=== PATIENT | female | born 1955 | race Caucasian/White ===

== ENCOUNTER 2022-09-22 12:59 | Inpatient (IN) | payer OTHER ==
[~2022-09-22] VITALS: Ht 167.6 cm; Wt 97.3 kg
[2022-09-22] MEDS ORDERED: SOD CHL 0.45% WITH 20MEQ KCL 1,000 ML IV ONE (13:30)
[2022-09-22 14:01] LABS: Basophils # (auto) 0 10 ^3/uL (0-0.2); Basophils % (auto) 0.4 % (0.0-2.0); Eosinophils # (auto) 0.3 10 ^3/uL (0-0.8); Lymphocytes # (auto) 1.7 10 ^3/uL (0.4-5.4); Nucleated Red Blood Cells % 0.1 %
[2022-09-22 14:03] LABS: Eosinophils % (auto) 3.7 % (0.0-7.0); Hematocrit 33.8 % (36.0-46.0); Hemoglobin 11.2 g/dL (12.2-16.2); Mean Corpuscular Hemoglobin 25.9 pg (28.0-32.0); Mean Corpuscular Volume 78.4 fL (80.0-100.0); Monocytes # (auto) 0.7 10 ^3/uL (0-1.3); Monocytes % (auto) 8.6 % (0.0-12.0); Neutrophils # (auto) 5.1 10 ^3/uL (1.6-8.6); Neutrophils % (auto) 65.3 % (37.0-80.0); Red Blood Cells 4.31 10^6/uL (4.0-5.20); Red Cell Distribution Width 18.8 % (11.8-14.3); White Blood Cell 7.8 10^3/uL (4.4-10.8)
[2022-09-22 14:28] LABS: Albumin 3.3 g/dL (3.4-5.0); Calcium 8.4 mg/dL (8.5-10.1)
[2022-09-22 14:33] LABS: Bilirubin, Total 0.4 mg/dL (0.2-1.0); Total Protein 6.2 g/dL (6.4-8.2)
[2022-09-22 15:09] LABS: Urine Bacteria FEW /hpf (None Seen); Urine Blood Negative /uL (Negative); Urine Specific Gravity 1.009 (1.001-1.035); Urine WBC 362 /hpf (0 - 5); Urine WBC Clumps PRESENT /hpf (None Seen)
[2022-09-22] MEDS ORDERED: DEXTROSE (50%) 50ML SYRG IV PRN (21:45)
[2022-09-22] MEDS ORDERED: ONDANSETRON HCL 4 MG/2 ML VIAL IV PRN (21:45)
[2022-09-22] MEDS ORDERED: HYDROcodone-ACET 5/325MG TAB PO PRN (21:45)
[2022-09-22] MEDS ORDERED: DOCUSATE SOD 100 MG CAP PO PRN (21:45)
[2022-09-22] MEDS ORDERED: NITROGLYCERIN 0.4 MG SL TAB SL PRN (22:45)
[2022-09-22] MEDS ORDERED: MORPHINE SULFATE INJ 2 MG/ml SYRG IV PRN (22:45)
[2022-09-23] MEDS: InsuLIN REG 1unit/0.01ml Soln (100units/ml) SC SCH ×5 (00:06→21:45)
[2022-09-23] MEDS: ACCU-CHEK COMFORT CURVE STRIP VI SCH ×5 (00:06→21:45)
[2022-09-23] MEDS: SODIUM CHLORIDE 0.9% 1,000 ML IV SCH ×2 (00:07→14:25)
[2022-09-23 06:05] LABS: Basophils # (auto) 0 10 ^3/uL (0-0.2); Eosinophils # (auto) 0.3 10 ^3/uL (0-0.8); Lymphocytes # (auto) 1.9 10 ^3/uL (0.4-5.4); Monocytes # (auto) 0.6 10 ^3/uL (0-1.3); Red Blood Cells 4.34 10^6/uL (4.0-5.20)
[2022-09-23 06:07] LABS: Basophils % (auto) 0.3 % (0.0-2.0); Hematocrit 33.8 % (36.0-46.0); Hemoglobin 11.1 g/dL (12.2-16.2); Lymphocytes % (auto) 24.9 % (10.0-50.0); Mean Corpuscular Hemoglobin 25.6 pg (28.0-32.0); Mean Corpuscular Hgb Conc. 32.9 g/dL (32.0-36.0); Mean Corpuscular Volume 77.8 fL (80.0-100.0); Monocytes % (auto) 8.6 % (0.0-12.0); Neutrophils # (auto) 4.6 10 ^3/uL (1.6-8.6); Neutrophils % (auto) 62.2 % (37.0-80.0); Nucleated Red Blood Cells % 0.1 %; Red Cell Distribution Width 18.9 % (11.8-14.3); White Blood Cell 7.5 10^3/uL (4.4-10.8)
[2022-09-23 06:09] LABS: Albumin 3.3 g/dL (3.4-5.0); Calcium 8.4 mg/dL (8.5-10.1); Potassium 3.6 mmol/L (3.5-5.1)
[2022-09-23 06:12] LABS: Bilirubin, Total 0.3 mg/dL (0.2-1.0); Total Protein 6.2 g/dL (6.4-8.2)
[2022-09-23] MEDS: ACETAMINOPHEN 325 MG TAB PO PRN ×2 (06:49→21:44)
[2022-09-23] MEDS ORDERED: FAMOTIDINE (10MG/ML) 2ML VL IV SCH (10:00)
[2022-09-23] MEDS: ASPirin 81 mg TAB PO SCH (10:09)
[2022-09-23] MEDS ORDERED: cefTRIAXone 1GM/50ML D5W 50 ML IV ONE (11:30)
[2022-09-23] MEDS ORDERED: PANTOPRAZOLE 40 MG TAB PO ONE (13:45)
[2022-09-23 15:00] VITALS: BP 121/73
[2022-09-23 15:01] VITALS: BP 128/65
[2022-09-23] MEDS ORDERED: LEVO125T PO (15:36)
[2022-09-23] MEDS ORDERED: TIZA4TAB7 PO (15:36)
[2022-09-23] MEDS ORDERED: ONDA-144 PO (15:36)
[2022-09-23] MEDS ORDERED: METO10TA3 PO (15:36)
[2022-09-23] MEDS ORDERED: OXYB5TAB61 PO (15:36)
[2022-09-23] MEDS ORDERED: ERY05OO LEFTEYE (15:36)
[2022-09-23] MEDS ORDERED: SIMV-13 PO (15:36)
[2022-09-23] MEDS ORDERED: LACT10SO3 PO (15:36)
[2022-09-23] MEDS ORDERED: PANT40T PO (15:36)
[2022-09-23] MEDS ORDERED: AMIT150T3 PO (15:36)
[2022-09-23] MEDS ORDERED: LATA0.0019 EACHEYE (15:36)
[2022-09-23] MEDS ORDERED: FURO40TA4 PO (15:36)
[2022-09-23] MEDS ORDERED: LOSA-69 PO (15:36)
[2022-09-23 17:00] VITALS: BP 146/84
[2022-09-23] MEDS: SUCRALFATE 1 GM TAB PO SCH ×2 (18:49→21:36)
[2022-09-23] MEDS: DOCUSATE SOD 100 MG CAP PO SCH (21:36)
[2022-09-23 22:00] VITALS: BP 112/79
[2022-09-24] VITALS (7 sets, daily range): BP systolic 134–147; BP diastolic 57–87
[2022-09-24] MEDS: ACETAMINOPHEN 325 MG TAB PO PRN (05:25)
[2022-09-24] MEDS: SUCRALFATE 1 GM TAB PO SCH ×2 (05:58→12:24)
[2022-09-24] MEDS: ACCU-CHEK COMFORT CURVE STRIP VI SCH ×2 (06:01→12:24)
[2022-09-24] MEDS: InsuLIN REG 1unit/0.01ml Soln (100units/ml) SC SCH ×2 (06:08→12:24)
[2022-09-24] MEDS: SODIUM CHLORIDE 0.9% 1,000 ML IV SCH (07:05)
[2022-09-24] MEDS ORDERED: cefTRIAXone 1GM/50ML D5W 50 ML IV SCH (09:00)
[2022-09-24] MEDS: ASPirin 81 mg TAB PO SCH (09:05)
[2022-09-24] MEDS: DOCUSATE SOD 100 MG CAP PO SCH (09:05)
[2022-09-24] MEDS ORDERED: PANTOPRAZOLE 40 MG TAB PO SCH (10:00)
[2022-09-24] MEDS ORDERED: LACTULOSE 20Gm/30ML SOLN PO PRN (10:00)
[2022-09-24] MEDS ORDERED: LOSARTAN POTASSIUM 25 MG TAB PO ONE (11:15)
[2022-09-25] MEDS ORDERED: LOSARTAN POTASSIUM 25 MG TAB PO SCH (10:00)
== END 2022-09-24 15:39 | disposition home or self-care (01) | DRG 312 ==
LOC: EDBD 12:59 → EDUNIT# 12:59 → ER 13:06 → TELE 22:32 → TELE-E-ADS 09-23 14:43 → TELE-CENTR 09-23 17:14
PROVIDERS: ADMIT Nurse Practitioner Family; ATTEND Internal Medicine Geriatric Medicine
DX: I95.2 Hypotension due to drugs (principal); N39.0 Urinary tract infection, site not specified; E11.65 Type 2 diabetes mellitus with hyperglycemia; E78.5 Hyperlipidemia, unspecified; E88.09 Other disorders of plasma-protein metabolism, not elsewhere classified; E66.01 Morbid (severe) obesity due to excess calories; K21.9 Gastro-esophageal reflux disease without esophagitis; G89.4 Chronic pain syndrome; T50.905A Adverse effect of unspecified drugs, medicaments and biological substances, initial encounter; Z20.822 Contact with and (suspected) exposure to COVID-19; F32.A Depression, unspecified; E07.9 Disorder of thyroid, unspecified; R51.9 Headache, unspecified; J45.909 Unspecified asthma, uncomplicated; R55 Syncope and collapse; K59.00 Constipation, unspecified; I10 Essential (primary) hypertension; Z91.81 History of falling; Z68.34 Body mass index [BMI] 34.0-34.9, adult; Z88.2 Allergy status to sulfonamides; Y92.89 Other specified places as the place of occurrence of the external cause; Z79.899 Other long term (current) drug therapy
CPT/HCPCS: 36415; 70450; 71045; 73502; 80053; 81001; 82962; 83036; 84484; 85025; 87086; 87088; 87186; 87426; 93005; 93306; 93886; 96365; 96366; 96367; 96375; 97163; G0378; J0696; J1815; J3490

== ENCOUNTER 2024-11-11 15:05 | Emergency (ER) | payer OTHER ==
[~2024-11-11] VITALS: Ht 167.6 cm; Wt 92.0 kg
[~2024-11-11 15:05] MED LIST: AMIT150T4 PO; ERY05OO LEFTEYE; LACT10SO3 PO; LATA0.008 EACHEYE; LEVO125T PO; LOSA-534 PO; METO10TA3 PO; ONDA-144 PO; OXYB5TAB14 PO; PANT40T PO; SIMV40TA18 PO; TIZA-142 PO
[2024-11-11 15:13] VITALS: BP 167/94; PULSE 98; RESP 18; TEMP 97.9; O2SAT 96
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
[2024-11-11] MEDS: HYDROcodone-ACET 5/325MG TAB PO ONE (16:00)
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
[2024-11-11 16:24] LABS: Basophils # (auto) 0.1 10 ^3/uL (0-0.2); Basophils % (auto) 0.8 % (0.0-2.0); Eosinophils # (auto) 0.1 10 ^3/uL (0-0.8); Hematocrit 43.4 % (36.0-46.0); Hemoglobin 14.2 g/dL (12.2-16.2); Lymphocytes # (auto) 2.2 10 ^3/uL (0.4-5.4); Mean Corpuscular Hemoglobin 27.6 pg (28.0-32.0); Mean Corpuscular Hgb Conc. 32.7 g/dL (32.0-36.0); Mean Corpuscular Volume 84.6 fL (80.0-100.0); Monocytes # (auto) 0.6 10 ^3/uL (0-1.3); Monocytes % (auto) 6.1 % (0.0-12.0); Neutrophils # (auto) 7.5 10 ^3/uL (1.6-8.6); Neutrophils % (auto) 71.1 % (37.0-80.0); Platelet Count (auto) 359 10^3/uL (140-450); Red Blood Cells 5.13 10^6/uL (4.0-5.20); Red Cell Distribution Width 15.1 % (11.8-14.3); White Blood Cell 10.5 10^3/uL (4.4-10.8)
[2024-11-11 16:28] LABS: Chloride 107 mmol/L (98-107); Potassium 3.8 mmol/L (3.5-5.1); Sodium 141 mmol/L (136-145)
[2024-11-11 16:29] LABS: Anion Gap 8 (5-15); Carbon Dioxide 26 mmol/L (20-31)
[2024-11-11 16:34] LABS: BUN/Creatinine Ratio 30.2 (10.0-20.0)
[2024-11-11 16:35] LABS: Blood Urea Nitrogen 26 mg/dL (9-23); Calcium 10.4 mg/dL (8.7-10.4); Glucose 121 mg/dL (74-106)
[2024-11-11 16:37] LABS: Urine Bacteria None Seen /hpf (None Seen)
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
[2024-11-11 16:48] LABS: Urine Blood Negative /uL (Negative); Urine Clarity Clear (Clear); Urine Color Yellow (Yellow); Urine Hyaline Cast FEW /lpf (0 - 2); Urine Mucus FEW (None Seen); Urine Protein, UAD 1+ (Negative); Urine Specific Gravity 1.026 (1.001-1.035); Urine Squamous Epithelial Cell FEW /hpf (<5); Urine Urobilinogen Normal (Negative); Urine WBC 3 /HPF (0-5); Urine pH 5.5 (5.0-9.0)
== END 2024-11-11 17:42 | disposition home or self-care (01) ==
LOC: EDUNIT# 15:05 → EDBD 15:05 → ER 15:05
DX: R51.9 Headache, unspecified (principal); M54.2 Cervicalgia; R42 Dizziness and giddiness; I10 Essential (primary) hypertension; E11.9 Type 2 diabetes mellitus without complications; J45.909 Unspecified asthma, uncomplicated; Z79.899 Other long term (current) drug therapy; Z88.2 Allergy status to sulfonamides; V49.40XA Driver injured in collision with unspecified motor vehicles in traffic accident, initial encounter; Y93.I9 Activity, other involving external motion; Y92.488 Other paved roadways as the place of occurrence of the external cause; Y99.8 Other external cause status
CPT/HCPCS: 36415; 70450; 72125; 73000; 80048; 81001; 84484; 85025